=== PATIENT | female | born 1945 | race Caucasian/White ===

== ENCOUNTER 2019-06-23 00:01 | Inpatient (IN) | payer MEDICARE ==
[~2019-06-23] VITALS: Ht 165.1 cm; Wt 100.2 kg
[2019-06-23] MEDS ORDERED: BENTYL10 MG PO (00:11)
[2019-06-23] MEDS ORDERED: TRAZODONE HCL150 MG PO (00:12)
[2019-06-23] MEDS ORDERED: GABAPENTIN300 MG PO (00:13)
[2019-06-23] MEDS ORDERED: TOPROL XL25 MG PO (00:15)
[2019-06-23] MEDS ORDERED: CALAN SR240 MG PO (00:16)
[2019-06-23] MEDS ORDERED: ZOCOR20 MG PO (00:16)
[2019-06-23] MEDS ORDERED: PRINIVIL20 MG PO (00:17)
[2019-06-23] MEDS ORDERED: ZOLOFT100 MG PO (00:17)
[2019-06-23] MEDS ORDERED: SYMBICORT 16010.2 GM INH (00:18)
[2019-06-23] MEDS ORDERED: LOZOL1.25 MG PO (00:18)
[2019-06-23 00:30] LABS: BASOPHILS 0.1 % (0-2); EOSINOPHILS 0 % (0-7); HEMOGLOBIN 13.6 g/dL (12-16); IMMATURE GRANULOCYTES 0.3 % (0-5); LYMPHOCYTES 1.9 % (15-50); MCH 31.6 pg (26.0-34.0); MCV 92.8 fL (80.0-100.0); MEAN PLATELET VOLUME 9.3 fL (7.4-10.4); MONOCYTES 3.2 % (2-11); NEUTROPHILS 94.5 % (40-80); PLATELET COUNT 201 10x3/uL (130-400); RBC 4.31 10x6/uL (4.00-5.40); RDW 13.1 % (11.5-14.5); WBC 15.2 10x3/uL (4.8-10.8)
--- NOTE | 2019-06-23 00:32 | NUR ---
PT GONE TO CT VIA WHEELCHAIR.
[2019-06-23 00:42] LABS: CALC OSMOLALITY 280 mosm/kg (275-300); CALCIUM 8.2 mg/dL (8.5-10.1); CARBON DIOXIDE 27.3 mmol/L (21.0-32.0); CHLORIDE - SERUM 100 mmol/L (98-107); CREATININE - SERUM 2.3 mg/dL (0.6-1.3); GLUCOSE 124 mg/dL (74-106); POTASSIUM - SERUM 3.3 mmol/L (3.5-5.1); SODIUM 137 mmol/L (136-145); UREA NITROGEN 30 mg/dL (7-18); eGFR NON AFRICAN AMERICAN 22 mL/min (90-120)
[2019-06-23 00:50] LABS: ALBUMIN 3.3 g/dL (3.4-5.0); ALKALINE PHOSPHATASE 67 U/L (30-120); ALT (SGPT) 22 U/L (10-68); AMYLASE - SERUM 37 U/L (25-115); BILIRUBIN - TOTAL 0.92 mg/dL (0.2-1.3); LIPASE 64 U/L (73-393); PROTEIN - SERUM 6.6 g/dL (6.4-8.2)
--- NOTE | 2019-06-23 00:52 | NUR ---
PT BACK FROM CT
[2019-06-23 00:53] LABS: TROPONIN-I < 0.017 ng/mL (0.000-0.060)
--- NOTE | 2019-06-23 01:00 | NUR ---
URINE SENT TO LAB AT THIS TIME.
[2019-06-23 01:15] LABS: BILIRUBIN NEGATIVE (NEGATIVE); GLUCOSE NEGATIVE (NEGATIVE); KETONE NEGATIVE (NEGATIVE); NITRITE NEGATIVE (NEGATIVE); UROBILINOGEN NORMAL (NORMAL)
[2019-06-23 01:16] LABS: WHITE CELLS - URINE 0-5 /hpf (NEGATIVE)
[2019-06-23 01:17] LABS: BACTERIA FEW /hpf (NEGATIVE); EPITHELIAL CELLS 0-5 /hpf (0-5); HYALINE CAST 0-5 /lpf (NONE SEEN); RED CELLS - URINE 0-5 /hpf (0-5)
[2019-06-23 01:26] LABS: CKMB 2.8 U/L (0.0-3.6); CREATINE KINASE 308 UL (21-215)
[2019-06-23 02:00] VITALS: BP 136/64
[2019-06-23 06:35] VITALS: BP 112/56; BMI 30.8
[2019-06-23 09:57] VITALS: BP 104/60
[2019-06-23 10:20] VITALS: BMI 30.7
[2019-06-23 14:41] VITALS: BP 116/53
[2019-06-23 17:46] VITALS: BP 103/61
[2019-06-23 20:00] VITALS: BP 106/52
--- NOTE | 2019-06-23 20:00 | NUR ---
PT SITTING UP IN BED WITHOUT DISTRESS, ORIENTED TO SELF AND PLACE. PT SLIGHTLY CONFUSED TO TIME AND SITUATION BUT EASILY REORIENTED. PT COMPLAINS OF UPSET STOMACH, GAVE ZOFRAN ORDERED. IV RIGHT HAND INFUSING NS @ 100. IV LEFT HAND SL. HARD OF HEARING. TELE IN PLACE. PROVIDED ICE WATER. DENIES OTHER NEEDS AT THIS TIME. CL IN REACH, WILL CTM
[2019-06-24 04:00] VITALS: BP 133/55
[2019-06-24 04:43] LABS: BASOPHILS 0 % (0-2); EOSINOPHILS 0 % (0-7); HEMATOCRIT 34.3 % (36.0-48.0); HEMOGLOBIN 11.3 g/dL (12-16); IMMATURE GRANULOCYTES 0.3 % (0-5); LYMPHOCYTES 2.9 % (15-50); MCH 30.9 pg (26.0-34.0); MCHC 32.9 g/dL (31.0-37.0); MCV 93.7 fL (80.0-100.0); MEAN PLATELET VOLUME 10.1 fL (7.4-10.4); MONOCYTES 4.6 % (2-11); NEUTROPHILS 92.2 % (40-80); PLATELET COUNT 204 10x3/uL (130-400); RBC 3.66 10x6/uL (4.00-5.40); RDW 13.7 % (11.5-14.5); WBC 15.7 10x3/uL (4.8-10.8)
[2019-06-24 04:57] LABS: ANION GAP 15.6 mmol/L (8-16); CALCIUM 7.2 mg/dL (8.5-10.1); CARBON DIOXIDE 21.7 mmol/L (21.0-32.0); CREATININE - SERUM 2.2 mg/dL (0.6-1.3); MAGNESIUM - SERUM 1.6 mg/dL (1.8-2.4); PHOSPHOROUS 3.8 mg/dL (2.5-4.9); POTASSIUM - SERUM 3.3 mmol/L (3.5-5.1)
--- NOTE | 2019-06-24 07:17 | NUR ---
PT LYING IN BED STILL CONFUSERD BUT EASY TO ORIENT, PT IS DRINKING MORE WATER TODAY AND LAST NIGHT, NO S/SX OF DISTRESS, PT K+ IS STILL LOW AT 3.3 AND MAG WAS A LITTLE LOW. PT WAS ADMINISTERED EP THIS MORNING, WILL CONTINUE WITH PLAN OF CARE
--- NOTE | 2019-06-24 08:03 | NUR ---
PT DAUGHTER CALLED AND WOULD LIKE FOR DR OR METAL FENCE ERECTOR TO CALL HER IN REGARDS TO PT STATUS. PT DAUGHTER IS A NURSE AND VERY WORRIED. ADVISED WILL HAVE METAL FENCE ERECTOR CALL SOON I SEE HER. PT DAUGHTER NAME IS GABBY AND NUMBER IS [phone]
[2019-06-24 09:13] VITALS: BP 130/48
--- NOTE | 2019-06-24 10:07 | NUR ---
PT IS ON 2L AND O2 SATURATION AT 92% PT STATES SHE DOES NOT USE O2 AT HOME AND DAUGHTER CONFIRMED. GAVE PT I/S TO USE WELL. CONTINUE WITH PLAN OF CARE
--- NOTE | 2019-06-24 10:35 | NUR ---
PT IS SOB, WITH WHEEZING HEARD STANDING AT BEDSIDE, INSTRUCTED PT ON USE OF I/S. COTNINUE WITH PLAN OF CARE
[2019-06-24 12:36] VITALS: BP 103/54
--- NOTE | 2019-06-24 12:59 | NUR ---
PT DAUGHTER CALLED IN REGARDS TO PT STATUS AND IF DOCTORS HAVE MADE ROUNDS, EXPLAINED THAT I WAS JUST IN ROOM WITH DOCTOR AND PT AND PT HAS CT OF CHEST ORDERED WELL WHAT XRAY SEEMED TO SHOW, PT DAUGHTER ASKED ABOUT LABWORK AND BLOOD LEVELS WENT OVER THESE WITH HER WELL, PT DAUGHTER STATED SHE STILL HAD QUESTIONS AND WOULD LIKE TO SPEAK WITH DOCTOR. GAVE PT DAUGHTER NUMBER TO YAMIL, CONTINUE WITH PLAN OF CARE
--- NOTE | 2019-06-24 13:58 | NUR ---
I have reviewed this patient and I concur with the Shift Assessment completed by the Licensed Practical Nurse today this shift.
[2019-06-24 16:55] VITALS: BP 133/49
[2019-06-24 20:00] VITALS: BP 135/65
--- NOTE | 2019-06-24 21:00 | NUR ---
CALLED TO ROOM BY NURSES AID ABOUT PT O2 83% ON 3L/NC. RT ON FLOOR AT THIS TIME, RT AT BEDSIDE, O2 97% PER HER PULSE OX. PT HAD JUST RECIEVED BREATHING TREATMENTS. PT IS DIAPHORETIC, NAIL BEDS PALE, SOB. BS 105. ASSISTED PT IN SITTING UP IN BED MORE. PAGED CHU ROSALES APN TO UPDATE ON PT STATUS. CHU AT BEDSIDE. O2 SAT DECREASED TO 80% AND PT BECOMING INCREASINGLY SOB. ORDERS FOR STAT CHEST XRAY, ABGS AND CARDIAC ENZYMES. CHU SPOKE WITH DR JACKMAN, ORDERS TO TRANSFER TO ICU. PT TAKEN TO ROOM 2300 WITH ALL BELONGINGS.
[2019-06-24 21:11] LABS: BASOPHILS 0.1 % (0-2); EOSINOPHILS 0 % (0-7); HEMATOCRIT 35.8 % (36.0-48.0); HEMOGLOBIN 11.7 g/dL (12-16); IMMATURE GRANULOCYTES 0.6 % (0-5); MCHC 32.7 g/dL (31.0-37.0); MCV 94.7 fL (80.0-100.0); MEAN PLATELET VOLUME 9.6 fL (7.4-10.4); MONOCYTES 5.3 % (2-11); PLATELET COUNT 213 10x3/uL (130-400); RBC 3.78 10x6/uL (4.00-5.40); RDW 14.2 % (11.5-14.5); WBC 16.1 10x3/uL (4.8-10.8)
--- NOTE | 2019-06-24 21:15 | NUR ---
CALLED AND SPOKE WITH PATIENTS DAUGHTER AYANNA ABOUT PT STATUS AND BEING TRANSFERED TO ICU. VERBALIZED UNDERSTANDING, STATES SHE WILL CALL BACK LATER FOR UPDATE
[2019-06-24 21:25] LABS: CREATINE KINASE 3027 UL (21-215); TROPONIN-I 0.156 ng/mL (0.000-0.060)
[2019-06-24 21:26] LABS: ANION GAP 16.7 mmol/L (8-16); CARBON DIOXIDE 19.8 mmol/L (21.0-32.0); MAGNESIUM - SERUM 1.8 mg/dL (1.8-2.4); PHOSPHOROUS 4.6 mg/dL (2.5-4.9); POTASSIUM - SERUM 3.5 mmol/L (3.5-5.1)
[2019-06-24 21:27] LABS: CALCIUM 7.4 mg/dL (8.5-10.1)
[2019-06-24 23:00] VITALS: BP 117/55
--- NOTE | 2019-06-24 23:00 | NUR ---
REC'D PT FROM FLOOR, PT ASSISTED INTO ICU BED AND PUT ON BIPAP. HORTICULTURE/FLORICULTURE TEACHER SPOKE WITH DR SANZ, ORDERS RECD. MONITORS ON AND WORKING, SEE FLOW SHEET FOR FURTHER DETIALS. WILL CONTINUE TO OBSERVE.
[2019-06-25] VITALS (25 sets, daily range): BP systolic 94–150; BP diastolic 39–89; Ht 165.1 cm; Wt 100.2 kg
[2019-06-25 02:16] LABS: CKMB 34.4 U/L (0.0-3.6); CREATINE KINASE 2875 UL (21-215); TROPONIN-I 0.264 ng/mL (0.000-0.060)
--- NOTE | 2019-06-25 03:00 | NUR ---
PT WENT INTO FIB WITH A RATE OF 130-150S, CARDIO CONSULTED AND NEW ORDERS RECD. PT ON BIPAP, MONITORS ON AND WORKING, SEE FLOW SHEET FOR FURTHER DETAILS WILL CONTINUE TO OBSERVE.
--- NOTE | 2019-06-25 05:00 | NUR ---
RATE CONTROLLED, PT REMAINS IN FIB. MONITORS ON AND WORKING, VITALS STABLE, PT DOES NOT TOLERATE BEING OFF BIPAP.
[2019-06-25 05:56] LABS: BASOPHILS 0 % (0-2); EOSINOPHILS 0 % (0-7); HEMATOCRIT 34.3 % (36.0-48.0); HEMOGLOBIN 11.4 g/dL (12-16); IMMATURE GRANULOCYTES 0.6 % (0-5); LYMPHOCYTES 2.1 % (15-50); MCH 30.9 pg (26.0-34.0); MCHC 33.2 g/dL (31.0-37.0); MEAN PLATELET VOLUME 9.6 fL (7.4-10.4); MONOCYTES 4.5 % (2-11); NEUTROPHILS 92.8 % (40-80); PLATELET COUNT 208 10x3/uL (130-400); RBC 3.69 10x6/uL (4.00-5.40); RDW 14.2 % (11.5-14.5); WBC 14.7 10x3/uL (4.8-10.8)
[2019-06-25 06:06] LABS: INR 1.47 (0.85-1.17); PROTIME 17.7 SECONDS (11.6-15.0)
[2019-06-25 06:07] LABS: APTT 34.5 SECONDS (22.8-39.4)
[2019-06-25 06:25] LABS: ALBUMIN 2.4 g/dL (3.4-5.0); ALKALINE PHOSPHATASE 65 U/L (30-120); ALT (SGPT) 39 U/L (10-68); BILIRUBIN - TOTAL 0.77 mg/dL (0.2-1.3); CALC OSMOLALITY 287 mosm/kg (275-300); CALCIUM 7.4 mg/dL (8.5-10.1); CARBON DIOXIDE 18.4 mmol/L (21.0-32.0); CHLORIDE - SERUM 101 mmol/L (98-107); CKMB 31.6 U/L (0.0-3.6); GLUCOSE 109 mg/dL (74-106); MAGNESIUM - SERUM 1.7 mg/dL (1.8-2.4); PHOSPHOROUS 3.8 mg/dL (2.5-4.9); POTASSIUM - SERUM 3.5 mmol/L (3.5-5.1); PRO BNP 3632 pg/mL (0-450); SODIUM 136 mmol/L (136-145); UREA NITROGEN 55 mg/dL (7-18); eGFR NON AFRICAN AMERICAN 26 mL/min (90-120)
[2019-06-25 06:27] LABS: CREATINE KINASE 2530 UL (21-215); TROPONIN-I 0.243 ng/mL (0.000-0.060)
--- NOTE | 2019-06-25 07:00 | NUR ---
RECEIVED BEDSIDE REPORT AND ASSUMED CARE OF PATIENT. PATEINT ON BIPAP AT FIO2 60% WITH SPO2 88-90%, INCREASED FIO2 TO 60% WITH SPO2 90-91%. RT AT ROOM AND NOTIFIED OF CHANGE. CM - A-FIB RATE OF 62, BBS - CRACKLES. IV 20 GA TO RIGHT FA WITH AMIODARONE AT 0.5 MG/HR (16.7 ML/HR) AND NS AT 10 ML/HR. ESPINOSA CATH IN PLACE WITH RUSSELL UOP. PATIENT ALERT AND ORIENTED WITH OCCASSIONAL CONFUSED STATMENTS MADE. REORIENTED. HEAD TO TOE ASSESSMENT COMLETED.
--- NOTE | 2019-06-25 09:00 | NUR ---
DEBRA KAUR APN WITH CARDIOLOGY IN ROOM UPDATED AND EXAMINES PATIENT. TO HOLD PO MEDS.
--- NOTE | 2019-06-25 09:09 | NUR ---
SPO2 88% ON 60% FIO2 BIPAP, INCREASED FIO2 TO 70%, RT AT ROOM. UNABLE TO TOLERATE COMING OFF BIPAP FOR PO MEDS, DESATS TO 78% QUICKLY ON 10 LPM VIA HIGH FLOW NC.
--- NOTE | 2019-06-25 09:15 | NUR ---
DR. JACKMAN ORDERS AIRBORN ISOLATION FOR PATIENT AND COVID 19 TEST ALONG WITH FLU A AND B.
--- NOTE | 2019-06-25 09:50 | NUR ---
PATIENT MOVED TO AIRBORN ISOLATION ROOM 2316 PER ORDER. REMAINS ON BIPAP AT 70%.
--- NOTE | 2019-06-25 10:33 | NUR ---
DR. SANZ AT ROOM UPDATED AND EXAMINES PATIENT. VSS. INCREASED FIO2 TO 80% AND BIPAP TO 15/6.
[2019-06-25 10:49] LABS: C-REACTIVE PROTEIN 43.3 mg/dL (0.0-0.9)
--- NOTE | 2019-06-25 11:00 | NUR ---
REASSESSMENT COMPLETED. VSS.
[2019-06-25 11:16] LABS: ERYTHROCYTE SEDIMENTATION RATE 24 mm/hr (0-30)
--- NOTE | 2019-06-25 12:33 | NUR ---
Nutrition Follow-up: Noted pt on bipap this AM and unable to come off for PO meds. Diet: Clear Liquid Wt: 185# (06/22) Last BM: 06/24 Labs noted: Glu 109, Ca 7.4, Mg 1.7, Alb 2.4 Meds noted: NS @ 30, MagOx, Zofran, Pepcid, KCl -Clear liquids since admit. If unable to advance diet further and/or pt unable to eat 2/2 bipap, MD may consider nutrition support. -Monitor wt. -RD following.
[2019-06-25 13:20] LABS: CKMB 25.1 U/L (0.0-3.6); PRO BNP 5576 pg/mL (0-450)
[2019-06-25 13:26] LABS: CREATINE KINASE 2212 UL (21-215)
--- NOTE | 2019-06-25 14:00 | NUR ---
DR. ROGERS AT ROOM TO INTUBATE PATIENT. PATIENT INTUBATED WITH 7.5 ETT, [address] ROGERS GAVE PATIENT 100 MCG FENTANYL AND 2 MG VERSED. VSS. TOLERATED WELL, CM - SR RATE 72.
--- NOTE | 2019-06-25 15:00 | NUR ---
REASSESSMENT COMPLETED. VSS. PATIENT TURNED AND REPOSITIONED IN BED.
--- NOTE | 2019-06-25 16:12 | NUR ---
IV 20 GA TO RIGHT AC X 1 ATTEMPT, POSITIVE BLOOD RETURN AND FLUSHES EASILY. AMIODARONE GTT INFUSING TO RIGHT AC, AND FENTANYL, NS AND ABX TO RIGHT FA IV.
--- NOTE | 2019-06-25 17:20 | NUR ---
PATIENT TURNED AND REPOSITIONED IN BED. ATTEMPTED TO PLACE OGT BUT UNABLE TO PLACE. VSS.
--- NOTE | 2019-06-25 18:15 | NUR ---
NG TUBE PLACED TO RIGHT NARE, PLACEMENT VERIFIED BY AUSCULTATION, PLACED TO LIWS. VSS. TOLERATED WELL.
--- NOTE | 2019-06-25 19:00 | NUR ---
RECIVED REPORT AT OUTSIDE DOOR OF PT ROOM. PT IS ON ISOLATION FOR POSSIBLE COVID-19. RESULTS PENDING. PT IS INUBATED/SEDATED. VITAL SIGNS ARE STABLE AT THIS TIME. OBSERVED RESTRAINTS WITH GOOD CIRCULATION AND ESPINOSA CATHETOR THAT IS BELOW THE BLADDER AND DRAINING. BED IS LOW,SIDE RAISLX2,CALL LIGHT WITHIN REACH. WILL CONITNUE TO MONITOR
--- NOTE | 2019-06-25 21:29 | NUR ---
DAUGHTER CALLED AT THIS TIME AND GAVE PASSCODE. I UPDATED HER ON PTS STATUS
--- NOTE | 2019-06-25 22:18 | NUR ---
PUT ON ALL PPE PROTECTION AND WENT INTO PT ROOM TO ADMINISTER MEDS ORDERED AT THIS TIME. PT IS INTUBATED/SEDATED. VSS. PERFORMED ORAL CARE AND REPOSITIONED FOR COMFORT. WILL PERFORM RE-ASSESSMENT AND DOCUMENT ON FLOWSHEET. BED IS LOW,SIDE RAISLX2,CALL LIGHT WITHIN REACH. BED IS LOW,SIDE RIALSX2,CALL LIGHT WIHTHIN REACH. WILL CONITNUE TO MONITOR
--- NOTE | 2019-06-25 22:51 | NUR ---
NEW MEDICINE ORDERED JUST PUT IN TO CHANGE NS TO 1/2 NS C 50mEq OF BICARB AT 75ML/HR. PUT ON ALL PPE BEFORE GOING INTO ROOM. VSS. BED IS LOW,SIDE RIALSX2,CALL LIGHT WIHTIN REACH. WILL CONITNUE TO MONITOR
[2019-06-26] VITALS (23 sets, daily range): BP systolic 102–153; BP diastolic 52–96
--- NOTE | 2019-06-26 03:00 | NUR ---
ADMINISTERING MEDS PER ORDER AND DOCUMENTED ON MAY. PROPPER PPE IS ON. PERFORMED ORAL CARE AT THIS TIME AND REPOSITIONED FOR COMFORT. VSS. TRIED TO DRAW AM LABS AT THIS TIME BUT WAS UNSUCCESSFULX2. PT TOLERATED WELL. WILL HAVE TO GET ANOTHER NURSE TO DRAW. BED IS LOW,SIDE RIALSX2,CALL LIGHT WITHIN REACH. WILL CONINTUE TO MONITOR
[2019-06-26 04:17] LABS: BASOPHILS 0 % (0-2); EOSINOPHILS 0 % (0-7); HEMATOCRIT 30.1 % (36.0-48.0); HEMOGLOBIN 10.1 g/dL (12-16); IMMATURE GRANULOCYTES 0.5 % (0-5); LYMPHOCYTES 3.9 % (15-50); MCH 30.8 pg (26.0-34.0); MCHC 33.6 g/dL (31.0-37.0); MCV 91.8 fL (80.0-100.0); MEAN PLATELET VOLUME 9.6 fL (7.4-10.4); NEUTROPHILS 88.6 % (40-80); PLATELET COUNT 202 10x3/uL (130-400); RBC 3.28 10x6/uL (4.00-5.40); RDW 14.6 % (11.5-14.5)
[2019-06-26 04:21] LABS: WBC 8.5 10x3/uL (4.8-10.8)
[2019-06-26 04:29] LABS: APTT 30.5 SECONDS (22.8-39.4); INR 1.36 (0.85-1.17); PROTIME 16.7 SECONDS (11.6-15.0)
[2019-06-26 04:51] LABS: ALKALINE PHOSPHATASE 51 U/L (30-120); ALT (SGPT) 35 U/L (10-68); BILIRUBIN - TOTAL 0.51 mg/dL (0.2-1.3); CALCIUM 7.5 mg/dL (8.5-10.1); CARBON DIOXIDE 21.1 mmol/L (21.0-32.0); CHLORIDE - SERUM 105 mmol/L (98-107); CREATININE - SERUM 2.1 mg/dL (0.6-1.3); GLUCOSE 121 mg/dL (74-106); LDH 292 U/L (81-234); PHOSPHOROUS 4.5 mg/dL (2.5-4.9); POTASSIUM - SERUM 3.2 mmol/L (3.5-5.1); PROTEIN - SERUM 5.4 g/dL (6.4-8.2); SODIUM 139 mmol/L (136-145); eGFR NON AFRICAN AMERICAN 24 mL/min (90-120)
[2019-06-26 04:52] LABS: CALC OSMOLALITY 299 mosm/kg (275-300); CKMB 16.6 U/L (0.0-3.6); CREATINE KINASE 1224 UL (21-215); MAGNESIUM - SERUM 2.2 mg/dL (1.8-2.4); UREA NITROGEN 70 mg/dL (7-18)
--- NOTE | 2019-06-26 05:08 | NUR ---
PUT ON APPROPRIATE PPE AND WENT INTO PT ROOM TO ADMINSTER POTASSIUM THROUGH NGT. WHEN TRYING TO PUSH IN, I HAD ALOT OF RESISTANCE. I TRIED TO READJUST TUBING AND STILL WAS NOT SUCCESSFUL. I PULLED NGT AT THIS TIME AND THE TIP WAS COMPLETLY BLOCKED BY THICK BROWNISH RED SUCREATIONS. PUT IN NEW NGT IN RIGHT NARE AND SECURED TO NOSE. PT IS TO GET A CHEST X-RAY AT 0600 AND WILL WAIT TO SEE PLACEMENT BEFORE HOOKING UP TO SUCTION. VSS. PT TOLERATED WELL. BED IS LOW,SIDE RIALSX2,CALL LIGHT WITHIN REACH.WILL CONTINUE TO MONITOR
--- NOTE | 2019-06-26 05:08 | NUR ---
PUT ON APPROPRIATE PPE. WENT TO ADMINSITER POTASSIUM THOUGH NGT HOWEVER HAD ALOT OF RESISTANCE AND COULD NOT PUSH IN. I PULLED NGT AND IT WAS STOPPED UP AT TIP WITH BROWNISH RED THICK SUCREATIONS. ATTEMPTED TO DROP NGT TUBE IN RIGHT NARE AND COULD NOT VARRIFY PLACEMENT. ATTEMPTED IN LEFT NARE AND AGAIN COULD NOT VARRIFY PLACEMENT. PT TOLERATED WELL. VSS. BED IS LOW,SIDE RIALSX2,CALL LIGHT WITHIN REACH.WILL CONTINUE TO MONITOR
--- NOTE | 2019-06-26 05:46 | NUR ---
DAUGHTER CALLED AND PROVIDED PASS CODE TO GET UPDATE
--- NOTE | 2019-06-26 07:00 | NUR ---
BEDSIDE REPORT RECEIVED. SHIFT ASSESSMENT COMPLETED PER FLOWSHEET, SEE FLOWSHEET FOR INFORMATION. VSS. PT RESTING IN BED WITH EYES CLOSED. WILL CONT TO MONITOR.
--- NOTE | 2019-06-26 09:00 | NUR ---
NG TUBE INSERTED USING LEFT NARE. ASCULTATED AIR IN STOMACH. WILL CONT TO MONITOR.
--- NOTE | 2019-06-26 11:00 | NUR ---
REASSESSMENT COMPLETED PER FLOWSHEET SEE FLOWSHEET FOR INFORMATION. AT BEDSIDE FOR CVL PLACEMENT. WILL CONT TO MONITOR.
--- NOTE | 2019-06-26 13:00 | NUR ---
AT BEDSIDE, WILL CONT TO MONITOR.
--- NOTE | 2019-06-26 15:00 | NUR ---
REASSESSMENT COMPLETED PER FLOWSHEET, SEE FLOWSHEET FOR INFORMATION. PT IN BED RESTING WITH EYES CLOSED. WILL CONT TO MONITOR.
--- NOTE | 2019-06-26 17:00 | NUR ---
PT RESTING IN BED WITH EYES CLOSED. VSS. WILL CONT TO MONITOR.
--- NOTE | 2019-06-26 20:25 | NUR ---
OBSERVED AIRBORN ISOLATION AND GOWNED APPROPRIATE PPE AT THIS TIME. PT IS INTUBATED/SEDATED OPENS EYES WHEN CALLED OUT NAME. WHEN EXPLAINING WHO I AM AND WHAT IM DOING PT SHAKES HEAD UP AND DOWN. SHE IS COOROPERATIVE. NEW RIGHT SUB-CLAVIN CDI C NO S/S OF INFILTRATION OR BLEEDING. RESTRAINTS OBSERVED WITH GOOD CAP REFILL AND CIRUCULATION. ESPINOSA OBSERVED BELOW BLADDER AND DRIANING. SCDS ARE ON. REPOSITION TO RIGHT SIDE WITH POSITIONNG WEDGES AND PUT PILLOW UNDER LEGS AND KNEE TO BRIDGE FEET OFF BED. NG TUB INTACT TO LEFT NARE AND WAS HEARD BY AUSCULTAION. WILL PERFORM FULL ASSESSMENT AND DOC IN FLOW SHEET. VSS. BED IS LOW,SIDE RIASLX2,CALL LIGHT WITHIN REACH. WILL CONTINUE TO MONITOR
--- NOTE | 2019-06-26 21:13 | NUR ---
PT IS RESTING WITH EYES CLOSED, INTUBATED/SEDATED. VSS. WENT IN ROOM TO ADMINSITER MED PER ORDER. APPROPRIATE PPE WAS WORN. PERFORMED ORAL CARE AT THIS TIME AND PT TOLERATED WELL. BED IS LOW,SIDE RIALSX2,CALL LIGHT WITHIN [facility]. WILL CONTINUE TO MONITOR
--- NOTE | 2019-06-26 21:45 | NUR ---
DAUGHTER MEI CALLED AND PROVIDED CORRECT PASSCODE. UPDATE WAS GIVEN. SHE VOICED"THANK YOU SO MUCH FOR YOUR UPDATE AND YOUR TIME".
--- NOTE | 2019-06-26 23:15 | NUR ---
PT IS RESTING IN BED WITH EYES CLOSED. VSS. BED IS LOW,SIDE RAILSX2,[facility]. WILL CONTINUE TO MONITOR
[2019-06-27] VITALS (24 sets, daily range): BP systolic 107–176; BP diastolic 52–77
--- NOTE | 2019-06-27 01:09 | NUR ---
PUT ON ALL PPE AND PERFORMED RE-ASSESSMENT AT THIS TIME AND WILL DOC IN FLOWSHEET. POSITIONED PT TO RIGHT SIDE WITH POSITIONNIG BLOCKS AND PUT PILLOW BETWEEN LEGS FOR COMFORT. PT TOELRATED WELL. VSS. NOTED THAT THERE IS THICK WHITISH BROWN SECREATIONS IN NGT. TRIED TO PULL BACK AND IT IS VERY THICK AND WOULD NOT SUCTION OUT. FLUSHED WITH 30ML OF WARM WATER AND TRIED TO SUCTION OUT MANNUALY WITHOUT SUCCESS DUE TO BEING SO THICK. WILL HOOK BACK TO INTER-MITTEN SUCTION TO SEE IF IT WILL DRAIN OUT. PT ABD IS STILL SLIGHTLY FIRM WITH HYPOACTIVE BOWEL SOUNDS. NO BM YET. PERFORMED ORAL CARE AT THIS TIME. RESTRAINTS OBSERVED. BED IS LOW,SIDE RIALSX2,CALL LIGHT WITHIN REACH. WILL CONINTUE TO MONITOR
--- NOTE | 2019-06-27 03:05 | NUR ---
PT IS RESTING IN BED WITH EYES CLOSED. INTUBATED/SEDATED. VSS. BED IS LOW,SIDE RAILSX2,CALL LIGHT WITHIN REACH.WILL CONTINUE TO MONITOR
--- NOTE | 2019-06-27 03:37 | NUR ---
APPLIED APPRORIATE PPE BEFORE ENTERING ROOM. PT IS RESTING WITH EYES CLOSED. PROVIDED ORAL CARE AND ESPINOSA CATHETOR CARE AT THIS TIME. PROVIDED FULL BED BATH C HCG CLEANSER AND CHANGED GOWN AND LINENS. REPOSITIONED FOR COMFORT WITH POSITIONING BLOCKS AND PUT PILLOW UNDER LOWERLEGS TO BRIDGE HEELS OFF BED. WASHED HAIR WITH HAIR CAP. ONCE AGAIN FLUSEHD 30 ML OF WARM WATER IN NG TUBE TO TRY TO BREAKUP THICK SECREATIONS IN TUBE. STILL WAS NOT ABLE TO PULL SECREATIONS OUT. CONTINUED TO HOOK TO LOW-INTERMITTEN SUCTION. PT TOLERATED WELL. VSS. BED IS LOW,SIDE RAISLX2,CALL LGT WTIN REACH. WILL CONITNUE TO MONITOR
[2019-06-27 04:32] LABS: BASOPHILS 0.1 % (0-2); EOSINOPHILS 0 % (0-7); IMMATURE GRANULOCYTES 1.7 % (0-5); LYMPHOCYTES 3.5 % (15-50); MCH 30.6 pg (26.0-34.0); MCHC 34.1 g/dL (31.0-37.0); MEAN PLATELET VOLUME 9.6 fL (7.4-10.4); MONOCYTES 5.3 % (2-11); NEUTROPHILS 89.4 % (40-80); RDW 14.6 % (11.5-14.5); WBC 7.2 10x3/uL (4.8-10.8)
[2019-06-27 04:35] LABS: HEMATOCRIT 46.6 % (36.0-48.0); HEMOGLOBIN 15.9 g/dL (12-16); MCV 89.8 fL (80.0-100.0); PLATELET COUNT 134 10x3/uL (130-400); RBC 5.19 10x6/uL (4.00-5.40)
[2019-06-27 04:47] LABS: ANION GAP 15.6 mmol/L (8-16); BILIRUBIN - TOTAL 0.5 mg/dL (0.2-1.3); CALCIUM 7.8 mg/dL (8.5-10.1); CARBON DIOXIDE 21.7 mmol/L (21.0-32.0); CREATININE - SERUM 1.6 mg/dL (0.6-1.3); MAGNESIUM - SERUM 2.3 mg/dL (1.8-2.4); PHOSPHOROUS 3.1 mg/dL (2.5-4.9); POTASSIUM - SERUM 3.3 mmol/L (3.5-5.1); PROTEIN - SERUM 5.6 g/dL (6.4-8.2); VANCOMYCIN - RANDOM 9.5 ug/mL (10.0-20.0)
--- NOTE | 2019-06-27 05:17 | NUR ---
APPLIED ALL PROPPER PPE AT THIS TIME. ADMINISTERING POTASSIUM CHLORIDE PER PROTOCOL, DOCUMENTED ON MAY. PT IS RESTING WITH EYES CLOSED. REPOSITIONED FOR COMFORT. VSS. BED IS LOW,SIDE RAILSX2,CALL LIGHT WITHIN REACH. WILL CONTINUE TO MONITOR
--- NOTE | 2019-06-27 06:00 | NUR ---
XRAY IS HERE AT THIS TIME. PT IS RESTING WITH EYES CLOSED. VSS. BED IS LOW,SIDE RIALSX2,CALL LIGHT WITHIN REACH.WILL CONITNUE TO MONITOR
--- NOTE | 2019-06-27 06:16 | NUR ---
DAUGHTER CALLED AT THIS TIME AND PROVIDED CORRECT PASS CODE. PROVIDED WITH UPDATE
--- NOTE | 2019-06-27 07:00 | NUR ---
BEDSIDE REPORT RECEIVED. SHIFT ASSESSMENT COMPLETED PER FLOWSHEET, SEE FLOWSHEET FOR INFORMATION. PT EASILY AWAKENS, ANSWERS YES OR NO QUESTIONS, FOLLOWS COMMANDS, THEN DRIFTS BACK TO SLEEP. NO ACUTE NEEDS OR DISTRESS NOTED AT THIS TIME. VSS. WILL CONT TO MONITOR.
--- NOTE | 2019-06-27 09:00 | NUR ---
PT REPOSITIONED PER COMFORT. 0900 MEDICATIONS GIVEN. VSS. WILL CONT TO MONITOR.
--- NOTE | 2019-06-27 11:00 | NUR ---
REASSESSMENT COMPLETED PER FLOWSHEET, SEE FLOWSHEET FOR INFORMATION. VSS. WILL CONT TO MONITOR.
--- NOTE | 2019-06-27 13:00 | NUR ---
REPOSITIONED PER COMFORT WITH ANTONI RT. WILL CONT TO MONITOR.
--- NOTE | 2019-06-27 15:00 | NUR ---
REASSESSMENT COMPLETED PER FLOWSHEET, SEE FLOWSHEET FOR INFORMATION. ANTONI RT DECREASED FIO2 TO 50% FROM 80%, O2 94%. WILL CONT TO MONITOR.
--- NOTE | 2019-06-27 17:00 | NUR ---
SPOKE WITH REGARDING ORDERS. NEW ORDERS RECEIVED. STARTING TUBE FEED OF NEPRO AT 10ML/HR. VSS. WILL CONT TO MONITOR.
--- NOTE | 2019-06-27 19:00 | NUR ---
REPORT RECEIEVED. PT SEDATED ON VENT, NO ACUTE DISTRESS NOTED. ASSESSMENT COMPLETE, SEE FLOWSHEET. RT SUBCLAVIAN CVL IN PLACE, SEE IV FLOWSHEET. WILL CONTINUE TO MONITOR.
--- NOTE | 2019-06-27 21:00 | NUR ---
PT REPOSITIONED FOR COMFORT, WILL CONTINUE TO MONITOR.
--- NOTE | 2019-06-27 23:00 | NUR ---
REASSESSMENT COMPLETED, SEE FLOWSHEET.
[2019-06-28] VITALS (24 sets, daily range): BP systolic 146–168; BP diastolic 67–81
--- NOTE | 2019-06-28 01:00 | NUR ---
PT SEDATED ON VENT, NO ACUTE DISTRESS NOTED.
--- NOTE | 2019-06-28 03:00 | NUR ---
PT REPOSITIONED FOR COMFORT, REASSESSMENT COMPLETED.
--- NOTE | 2019-06-28 05:00 | NUR ---
PT SEDATED ON VENT, WILL CONTINUE TO MONITOR.
[2019-06-28 06:11] LABS: ALBUMIN 1.9 g/dL (3.4-5.0); ANION GAP 13.6 mmol/L (8-16); BILIRUBIN - TOTAL 0.39 mg/dL (0.2-1.3); CALCIUM 7.9 mg/dL (8.5-10.1); CARBON DIOXIDE 23.5 mmol/L (21.0-32.0); CREATININE - SERUM 1.3 mg/dL (0.6-1.3); MAGNESIUM - SERUM 2.6 mg/dL (1.8-2.4); PHOSPHOROUS 3.4 mg/dL (2.5-4.9); POTASSIUM - SERUM 4.1 mmol/L (3.5-5.1); PROTEIN - SERUM 5.7 g/dL (6.4-8.2); VANCOMYCIN - TROUGH 15.8 ug/mL (10.0-20.0)
[2019-06-28 06:13] LABS: BASOPHILS 0.1 % (0-2); EOSINOPHILS 0 % (0-7); IMMATURE GRANULOCYTES 6.5 % (0-5); LYMPHOCYTES 3.7 % (15-50); MCH 30.8 pg (26.0-34.0); MCHC 33.7 g/dL (31.0-37.0); MCV 91.5 fL (80.0-100.0); MEAN PLATELET VOLUME 9.5 fL (7.4-10.4); MONOCYTES 4.9 % (2-11); NEUTROPHILS 84.8 % (40-80); RDW 15.2 % (11.5-14.5)
[2019-06-28 06:29] LABS: HEMATOCRIT 31.2 % (36.0-48.0); HEMOGLOBIN 10.5 g/dL (12-16); PLATELET COUNT 207 10x3/uL (130-400); RBC 3.41 10x6/uL (4.00-5.40); WBC 13.4 10x3/uL (4.8-10.8)
--- NOTE | 2019-06-28 09:57 | EC ---
PATIENT:BAILEY JEAN BAPTISTE DATE OF SERVICE: 06/23/19 SEX: F MEDICAL RECORD: [id number] DATE OF : 41 LOCATION:[facility] D231 AGE OF PATIENT: 74 ADMISSION DATE: 06/23/19 REFERRING PHYSICIAN: INTERPRETING PHYSICIAN: RONEY MINA MD ECHOCARDIOGRAM REPORT ECHO CHARGES 4 ECHO COMPLETE Date: 06/25/19 CLINICAL DIAGNOSIS: DYSPNEA, TACHYCARDIA, RENAL FX ECHOCARDIOGRAPHIC MEASUREMENTS (adult normal given) AC root (d.<3.7cm) 2.5 cm LV Septum d (<1.2 cm> 1.2 cm Valve Excursion 1.7 cm LV Septum (systole) 1.8 cm Left Atria (s.<4.0cm> 3.6 cm LVPW d(<1.2cm) 0.9 cm RV (d.<2.3cm) 2.3 cm LVPW (sytole) 1.1 cm LV diastole(<5.6CM) 4.7 cm MV E-F(>70mm/sec) cm LV systole 3.3 cm LVOT Diameter 1.8 cm MV exc.(>10mm) cm Est.ejection fraction (50-75%) % DOPPLER: LVIT cm/sec A 34 cm/sec E 77 cm/sec LA cm/sec RVSP 30.3 mmHg LVOT 101 cm/sec AOP1/2T m/s Asc. Ao 154 cm/sec RVOT 72 cm/sec RA cm/sec PA 95 cm/sec AV Gradient Peak 9.5 mmHg AV Mean 5.8 mmHg AV Area 1.6 cm MV Gradient Peak 3.2 mmHg MV Mean 1.1 mmHg MV Area cm COMMENTS: Material Worker: Светлана DOWNING Faculty Head: 3 Dr. Lopez TAPE# PACS Pericardial Effusion N DATE OF SERVICE: Adequate 2D, color flow imaging, spectral Doppler, and M-Mode Borderline LVH. LV internal dimension is normal. Wall motion is normal. EF is greater than or equal to 55%. Aortic valve is tricuspid. No evidence of stenosis by Doppler interrogation. Left atrium is normal at 3.6 cm. Mitral valve shows no prolapse. Trace MR. Right-sided chambers are grossly normal. Trace TR. ECHOCARDIOGRAM REPORT [id number] BAILEY JEAN BAPTISTE TRANSINT:[id number] Voice Confirmation ID: [id number] DOCUMENT ID: [id number] RONEY MINA MD at 0957 CC: [id number] DICTATION DATE: 06/25/19 1013 CROP OR GRAIN FARMWORKER: 06/25/19 1200 ADM IN [place] [id number] [place] [id number]
[2019-06-28 10:08] LABS: ANA REFLEX - DIRECT Negative (Negative)
--- NOTE | 2019-06-28 12:07 | NUR ---
Nutrition follow-up: Pt intubated, sedated Nepro @ 20 ml/hr; to increase to goal rate of 40 ml/hr labs reviewed Wt: 208# +BM RDN following.
--- NOTE | 2019-06-28 19:15 | NUR ---
REPORT RECEIEVED. PT SEDATED ON VENT. ASSESSMENT COMPLETE, SEE FLOWSHEET. RT SUBCLAVIAN CVL INFUSING, SEE IV FLOWSHEET. SOFT WRIST RESTRAINTS IN PLACE, WILL CONTINUE TO MONITOR.
--- NOTE | 2019-06-28 21:00 | NUR ---
PT SEDATED ON VENT, NO ACUTE DISTRESS NOTED.
--- NOTE | 2019-06-28 23:00 | NUR ---
PT SEDATED ON VENT, REASSESSMENT COMPLETED.
[2019-06-29] VITALS (23 sets, daily range): BP systolic 115–181; BP diastolic 66–119
--- NOTE | 2019-06-29 01:00 | NUR ---
PT SEDATED ON VENT, REPOSITIONED FOR COMFORT.
--- NOTE | 2019-06-29 03:43 | NUR ---
PT WENT INTO UNCONTROLLED AFIB, DR ANSHUL REYES, UPDATED ON STATUS NEW ORDERS RECEIVED.
--- NOTE | 2019-06-29 05:00 | NUR ---
CHG BATH GIVEN, PT SEDATED ON VENT. WILL CONTINUE TO MONITOR.
[2019-06-29 06:11] LABS: HEMATOCRIT 32.2 % (36.0-48.0); HEMOGLOBIN 10.7 g/dL (12-16); MCH 30.5 pg (26.0-34.0); MCHC 33.2 g/dL (31.0-37.0); MCV 91.7 fL (80.0-100.0); MEAN PLATELET VOLUME 9.5 fL (7.4-10.4); PLATELET COUNT 168 10x3/uL (130-400); RBC 3.51 10x6/uL (4.00-5.40); RDW 15.5 % (11.5-14.5)
[2019-06-29 06:31] LABS: ALBUMIN 1.8 g/dL (3.4-5.0); ANION GAP 10.5 mmol/L (8-16); BILIRUBIN - TOTAL 0.3 mg/dL (0.2-1.3); CALCIUM 8.2 mg/dL (8.5-10.1); CREATININE - SERUM 1.4 mg/dL (0.6-1.3); MAGNESIUM - SERUM 2.3 mg/dL (1.8-2.4); POTASSIUM - SERUM 3.5 mmol/L (3.5-5.1); PROTEIN - SERUM 5.3 g/dL (6.4-8.2); VANCOMYCIN - TROUGH 21.5 ug/mL (10.0-20.0)
--- NOTE | 2019-06-29 07:00 | NUR ---
ASSESSMENT COMPLETE PER FLOWSHEET. PT INTUBATED. SEE FLOWSHEET.
--- NOTE | 2019-06-29 09:40 | NUR ---
DEBRA KAUR APN HERE SEEING PT. DIG 0.5MG ORDER NOW THEN 0.25 MG X2 DOSES. DIG GIVEN IVP. UCAF\FLUTTER HR 153
[2019-06-29 12:41] LABS: ANISOCYTOSIS OCC; LYMPHOCYTES 5 % (15-50); MONOCYTES 8 % (2-11); NEUTROPHILS 78 % (40-80); PLATELET ESTIMATE NORMAL
--- NOTE | 2019-06-29 13:40 | NUR ---
DEBRA KAUR BEEPED. RETURN CALL ADDING CARDIZEM GTT TO REGIMEN. INSTRUCT PT IN AFIB/FLUTTER HR 160.
--- NOTE | 2019-06-29 16:00 | NUR ---
DEBRA KAUR APN CALLED INSTRUCT PT GOING IN AND OUT OF AFIB\FLUTTER. CONTINUE CARDIZEM AND CORDARONE.
--- NOTE | 2019-06-29 17:00 | NUR ---
DAUGHTER CALLED AND UPDATED. INSTRUCT PT IS CRITICAL BUT STABLE. SHES BEEN IN AFIB/FLUTTER HR OF 160. ON 2 GTTS TO HELP.
--- NOTE | 2019-06-29 18:04 | MORECARE ---
CASE MANAGEMENT DISCHARGE SUMMARY PATIENT: BAILEY JEAN BAPTISTE UNIT: [id number] ADM DATE: 06/23/19 AGE: 74 : 43 SEX: F ROOM/BED: D.2304 AUTHOR: RACHID MCCALL PHYSICIAN: REFERRING PHYSICIAN: LUCILA JACKMAN DO DATE OF SERVICE: 06/29/19 Discharge Plan Patient Name: BAILEY JEAN BAPTISTE Facility: [facility]:[place] : 1945 Planned Disposition: Home Anticipated Discharge Date: Discharge Date: Expected LOS: Initial Reviewer: [email or web address] Initial Review Date: 06/23/2019 Generated: 06/29/19 7:04 pm Patient Name: BAILEY JEAN BAPTISTE Page [phone] at 1804 All edits/amendments must be made on the electronic document DICTATION DATE: 06/29/191803 PIE FILLER: [email or web address] 06/29/191803 RPT#: [id number] DC DATE: STATUS: ADM IN [facility] [address] [place] [address] END OF REPORT
--- NOTE | 2019-06-29 18:12 | MORECARE ---
CASE MANAGEMENT DISCHARGE SUMMARY PATIENT: BAILEY JEAN BAPTISTE UNIT: [id number] ADM DATE: 06/23/19 AGE: 74 : 43 SEX: F ROOM/BED: D.2304 AUTHOR: STEFANYDOC PHYSICIAN: REFERRING PHYSICIAN: LUCILA JACKMAN DO DATE OF SERVICE: 06/29/19 Discharge Plan Patient Name: BAILEY JEAN BAPTISTE Facility: [facility]:[place] : 1945 Planned Disposition: Home Anticipated Discharge Date: Discharge Date: Expected LOS: Initial Reviewer: [email or web address] Initial Review Date: 06/23/2019 Generated: 06/29/19 7:12 pm Comments DCP- Discharge Planning Updated by [id number]: Sheryl Sandra on 06/29/19 5:[address] Patient Name: BAILEY JEAN BAPTISTE Admission Status: ER Accout number: [id number] Admission Date: 06-23-2019 : 1945 Admission Diagnosis:DIARRHEA, UNSPECIFIED Attending: LUCILA JACKMAN Current LOS: 6 Anticipated DC Date: Planned Disposition: Home Primary Insurance: MEDICARE A & B Discharge Planning Comments: CM called and spoke with patient's daughter to complete initial dc planning assessment. CM educated patient's daughter on the CM role and verbal consent given by patient to complete assessment. Patient lives at home alone where she is independent with her care. At discharge patient's daughter plans on her discharging home. CM discussed availability of home health, rehab services, and medical equipment. She has a shower chair. Patient's daughter denied any known discharge needs at this time. CM will continue to follow and will assist as needed with dc plans/needs. Structures Mechanic: Sheryl Sandra DCPIA - Discharge Planning Initial Assessment Updated by [email or web address]: Sheryl Sandra on 06/29/19 6:06 pm * Is the patient Alert and Oriented? No * How many steps to enter\exit or inside your home? * PCP NO PCP * [facility] * Preadmission Environment Home Alone * ADLs Independent * Equipment Shower Chair * List name and contact numbers for known caregivers / representatives who currently or will assist patient after discharge: AYANNA ENRIQUEZ - DAUGHTER- [phone] * Verbal permission to speak to the caregivers and representatives has been obtained from the patient. N/A * Community resources currently utilized None * Additional services required to return to the preadmission environment? No * Can the patient safely return to the preadmission environment? Yes * Has this patient been hospitalized within the prior 30 days at any hospital? No Last DP export: 06/29/19 5:04 p Patient Name: BAILEY JEAN BAPTISTE Page [phone] at 1812 All edits/amendments must be made on the electronic document DICTATION DATE: 06/29/191811 FOUR SLIDE MACHINE SETTER: NGUYỄN 06/29/191811 RPT#: [id number] DC DATE: STATUS: ADM IN [facility] [address] [place] [address] END OF REPORT
--- NOTE | 2019-06-29 18:30 | NUR ---
pt turned and suction. Cm afib\flutter hr 170. Pt reathing 26 times a minute o2 sats 90 percent. Abg obtained. Fio2 increased to 80 percent.
--- NOTE | 2019-06-29 19:00 | NUR ---
RECEIVED REPORT. RECEIVED PATIENT IN BED. SEDATED/INTUBATED, ETT INTACT/SECURE/PATENT CONNECTED TO MECHANICAL VENT WITH ALARMS SET. ASSESSMENT COMPLETED SEE FLOW SHEET FOR DETAILS. MONITORS CONNECTED TO PATIENT WITH ALARMS SET. VSS.
[2019-06-29 20:06] LABS: MYCOPLASMA PNEUMO IGG <100 U/mL (0-99)
--- NOTE | 2019-06-29 21:00 | NUR ---
SEDATED/INTUBATED. VSS
--- NOTE | 2019-06-29 23:00 | NUR ---
REASSESSMENT COMPLETED PER FLOW SHEET, SEE FOR DETAILS. VSS. ETT INTACT/SECURE/PATENT
[2019-06-30] VITALS (22 sets, daily range): BP systolic 133–198; BP diastolic 62–102
--- NOTE | 2019-06-30 03:00 | NUR ---
REASSESSMENT COMPLETED PER FLOW SHEET WITH NO ACUTE DISTRESS OBSERVED. VSS. ETT INTACT/SECURE/PATENT CONNECTED TO MECH VENT AT ORDERED SETTINGS.
--- NOTE | 2019-06-30 05:00 | NUR ---
SEDATED/INTUBATED. CHG BATH , ESPINOSA CATH CARE, ORAL CARE GIVEN. TURNED AND REPOSITIONED FOR COMFORT. WILTON WELL.
--- NOTE | 2019-06-30 07:00 | NUR ---
ASSESSMENT COMPLETE PER FLOWSHEET.
--- NOTE | 2019-06-30 09:07 | NUR ---
Nutrition follow-up: Intubated, sedated; PSV trial today Nepro Infusing @ 40 ml/hr; pt tolerating at this time Labs reviewed Wt: 205# RDN following.
[2019-06-30 09:14] LABS: HEMATOCRIT 40.1 % (36.0-48.0); HEMOGLOBIN 13.7 g/dL (12-16); MCH 31.1 pg (26.0-34.0); MCHC 34.2 g/dL (31.0-37.0); MCV 91.1 fL (80.0-100.0); MEAN PLATELET VOLUME 10.3 fL (7.4-10.4); PLATELET COUNT 205 10x3/uL (130-400); RDW 15.2 % (11.5-14.5); WBC 36.6 10x3/uL (4.8-10.8)
[2019-06-30 09:18] LABS: ANION GAP 12.9 mmol/L (8-16); CALCIUM 8.4 mg/dL (8.5-10.1); CARBON DIOXIDE 29.6 mmol/L (21.0-32.0); CREATININE - SERUM 1.3 mg/dL (0.6-1.3); POTASSIUM - SERUM 3.5 mmol/L (3.5-5.1)
[2019-06-30 09:27] LABS: LYMPHOCYTES 7 % (15-50); MONOCYTES 1 % (2-11); NEUTROPHILS 92 % (40-80); PLATELET ESTIMATE NORMAL
[2019-06-30 09:29] LABS: SCHISTOCYTES OCC
--- NOTE | 2019-06-30 12:00 | NUR ---
FAMILY UPDATED PER DR DE LA GARZA.
--- NOTE | 2019-06-30 15:00 | NUR ---
TO CT VIA BED. WITH SANDY RT AND ELLEN.
--- NOTE | 2019-06-30 17:00 | NUR ---
DR DE LA GARZA CALLED AND UPDATED ON CT. FLEETS ENEMA ORDERED AND GIVEN.
--- NOTE | 2019-06-30 19:00 | NUR ---
SHIFT ASSESSMENT COMPLETED. PT CARE ASSUMED, MONITORS ON AND WORKING, HEART RATE IN THE 120S, PT SEDATED ON VENT, VENT SETTINGS NOTED. SEE FLOW SHEET FOR FURTHER DETAILS. WILL CONTINUE TO OBSERVE.
--- NOTE | 2019-06-30 21:00 | NUR ---
PT TURNED AND REPOSITIONED FOR COMFORT, MONITORS ON AND WORKING, HEART RATE REMAINS FIB/FLUTTER RATE 1OO'S. WILL CONTINUE TO OBSERVE.
--- NOTE | 2019-06-30 23:00 | NUR ---
PT TURNED AND REPOSITIONED FOR COMFORT, MONITORS ON AND WORKING, PRN VERSED GIVEN, PT HEART RATE IMPROVING AND RESP RATE. SEE FLOW SHEET FOR FURTHER DETAILS, WILL CONTINUE TO OBSERVE.
[2019-07-01] VITALS (24 sets, daily range): BP systolic 88–167; BP diastolic 27–83
--- NOTE | 2019-07-01 01:00 | NUR ---
PT TURNED AND REPOSITIONED FOR COMFORT, MONITORS ON AND WORKING, VITALS STABLE. WILL CONTINUE TO OBSERVE.
--- NOTE | 2019-07-01 03:00 | NUR ---
PT TURNED AND REPOSITIONED FOR COMFORT, ICE PACKS ON PT FOR FEVER, PT RESP RATE, HEART RATE AND RHYTHM SEEM TO RESPOND WELL TO PRN VERSED. PT CURRENTLY IN NORMAL SINUS. PT TURNED AND REPOSITIONED FOR COMFORT, MONITORS ON AND WORKING, VITALS STABLE, SEE FLOW SHEET FOR FURTHER DETAILS. WILL CONTINUE TO OBSERVE.
--- NOTE | 2019-07-01 05:00 | NUR ---
PT TURNED AND REPOSITIONED FOR COMFORT, MONITORS ON AND WORKING, VITALS STABLE. WILL CONTINUE TO OBSERVE.
[2019-07-01 05:31] LABS: BILIRUBIN NEGATIVE (NEGATIVE); GLUCOSE NEGATIVE (NEGATIVE); KETONE NEGATIVE (NEGATIVE); NITRITE NEGATIVE (NEGATIVE); UROBILINOGEN NORMAL (NORMAL)
[2019-07-01 05:32] LABS: BACTERIA FEW /hpf (NEGATIVE); EPITHELIAL CELLS 0-5 /hpf (0-5); RED CELLS - URINE 0-5 /hpf (0-5); WHITE CELLS - URINE 0-5 /hpf (NEGATIVE)
[2019-07-01 06:30] LABS: VANCOMYCIN - TROUGH 18.8 ug/mL (10.0-20.0)
[2019-07-01 06:40] LABS: BASOPHILS 0.1 % (0-2); EOSINOPHILS 0 % (0-7); HEMATOCRIT 37.4 % (36.0-48.0); HEMOGLOBIN 12.6 g/dL (12-16); LYMPHOCYTES 4.3 % (15-50); MCH 30.3 pg (26.0-34.0); MCHC 33.7 g/dL (31.0-37.0); MCV 89.9 fL (80.0-100.0); MEAN PLATELET VOLUME 11.7 fL (7.4-10.4); MONOCYTES 4.6 % (2-11); PLATELET COUNT 127 10x3/uL (130-400); RBC 4.16 10x6/uL (4.00-5.40); RDW 14.9 % (11.5-14.5); WBC 34.6 10x3/uL (4.8-10.8)
--- NOTE | 2019-07-01 07:00 | NUR ---
REPORT RECEIVED. ASSESSMNE TOCMPLETE PER FLOW SHEET. VSS. PT RESTING COMFORTABLY WILL CONTINUE TO MONITOR
[2019-07-01 07:01] LABS: ALBUMIN 1.8 g/dL (3.4-5.0); BILIRUBIN - TOTAL 0.53 mg/dL (0.2-1.3); CALCIUM 7.7 mg/dL (8.5-10.1); CARBON DIOXIDE 28.5 mmol/L (21.0-32.0); PHOSPHOROUS 2.5 mg/dL (2.5-4.9); PROTEIN - SERUM 5.2 g/dL (6.4-8.2)
[2019-07-01 07:08] LABS: ANION GAP 12.2 mmol/L (8-16); CREATININE - SERUM 1.7 mg/dL (0.6-1.3); MAGNESIUM - SERUM 1.6 mg/dL (1.8-2.4)
[2019-07-01 07:09] LABS: POTASSIUM - SERUM 2.7 mmol/L (3.5-5.1)
--- NOTE | 2019-07-01 08:01 | OP ---
PATIENT NAME: BAILEY JEAN BAPTISTE MEDICAL RECORD: [id number] :41 LOCATION:D.ICU D.2304 ADMISSION DATE:06/23/19 SURGEON: JUVENCIO COOL MD DATE OF OPERATION: 06/26/2019 PREOPERATIVE DIAGNOSES: 1. Need for IV access. 2. Acute respiratory failure on the ventilator. 3. Metabolic encephalopathy. 4. Possible acute colitis. 5. Atrial fibrillation with rapid ventricular response. 6. Acute kidney injury. POSTOPERATIVE DIAGNOSES: 1. Need for IV access. 2. Acute respiratory failure on the ventilator. 3. Metabolic encephalopathy. 4. Possible acute colitis. 5. Atrial fibrillation with rapid ventricular response. 6. Acute kidney injury. PROCEDURE: Right subclavian vein triple-lumen central venous line placement. SURGEON: Juvencio Cool MD REPORT OF PROCEDURE: The patient's right chest was prepped and draped in sterile fashion. A total of 5 cc of 1% lidocaine was infused into the subcutaneous tissues. A needle was used to cannulate the right subclavian vein and a guidewire was advanced with ease. Over this wire, a dilator was placed followed by the triple lumen catheter. The catheter aspirated nonpulsatile dark blood and flushed easily in all 3 ports. This was sutured into place with 3-0 silk ties and dressed appropriately. COMPLICATIONS: None. CONDITION: Critical. ANESTHESIA: General endotracheal and local. BLOOD LOSS: Minimal. Procedure was done in the ICU at the bedside. TRANSINT:[id number] Voice Confirmation ID: [id number] DOCUMENT ID: [id number] JUVENCIO COOL MD at 0801 CC: [id number] DICTATION DATE: 06/26/[address] CLERK: 06/26/19 1510 ADM IN [place] [id number] [place] [address]
--- NOTE | 2019-07-01 11:00 | NUR ---
REASSESSMENT COMPLETE PER FLOW SHEET. VSS. PT RESTING COMFORTABLY WILL CONTINUE TO MONITOR
[2019-07-01 14:36] LABS: MACROPHAGES BF 3 %; NEUT - BF 80 %
[2019-07-01 14:38] LABS: MACROPHAGES BF 4 %; NEUT - BF 82 %
[2019-07-01 14:52] LABS: BILIRUBIN NEGATIVE (NEGATIVE); GLUCOSE NEGATIVE (NEGATIVE); KETONE SMALL mg/dL (NEGATIVE); NITRITE NEGATIVE (NEGATIVE); UROBILINOGEN NORMAL (NORMAL)
[2019-07-01 14:53] LABS: BACTERIA FEW /hpf (NEGATIVE); EPITHELIAL CELLS OCC /hpf (0-5); GRANULAR CAST RARE /lpf (NONE SEEN); WHITE CELLS - URINE RARE /hpf (NEGATIVE)
--- NOTE | 2019-07-01 15:00 | NUR ---
REASSESSMENT COMPLETE PER FLOW SHEET. VSS NO NEW CHANGES WILL CONTINUE TO MONITOR
--- NOTE | 2019-07-01 19:00 | NUR ---
HEAD TO TOE ASSESSMENT COMPLETED. ENTERED ROOM FOUND PATIENT HYPOTENSIVE WITH A FEVER OF 103.6. PROVIDED TYLENOL. Sinus rhythm noted on the monitor stopped Cardizem per order Sinus rhythm noted on the monitor stopped Cardizem per order. Decreased Precedex per order. Applied ice packs and reposition for comfort.
--- NOTE | 2019-07-01 20:00 | NUR ---
Reassessed temperature temperature 103.4 reapplied ice packs
--- NOTE | 2019-07-01 21:00 | NUR ---
Reassess temperature, temperature is at 101.6 reapplied ice packs. Reposition patient and provided oral care.
--- NOTE | 2019-07-01 23:00 | NUR ---
Head to toe assessment completed. Patient continues to be febrile applied ice packs and administered Tylenol per order. Patient does not move or fight ventilator. removed restraints. Reposition patient and provided oral care.
[2019-07-02] VITALS (41 sets, daily range): BP systolic 76–145; BP diastolic 36–105
--- NOTE | 2019-07-02 05:00 | NUR ---
Reposition patient for comfort provided oral care. Obtained a.m. labs
--- NOTE | 2019-07-02 05:44 | NUR ---
Assessment completed. Provided full complete bed bath. Temperature noted to be 98.3.Decrease sedation per order.
[2019-07-02 05:47] LABS: ALBUMIN 1.6 g/dL (3.4-5.0); BILIRUBIN - TOTAL 0.87 mg/dL (0.2-1.3); PROTEIN - SERUM 4.6 g/dL (6.4-8.2)
[2019-07-02 05:48] LABS: HEMOGLOBIN 11.1 g/dL (12-16); MCH 30.2 pg (26.0-34.0); MCHC 33.6 g/dL (31.0-37.0); MCV 89.9 fL (80.0-100.0); PLATELET COUNT 61 10x3/uL (130-400); RBC 3.67 10x6/uL (4.00-5.40); RDW 15.9 % (11.5-14.5); WBC 35.9 10x3/uL (4.8-10.8)
[2019-07-02 05:53] LABS: INR 1.93 (0.85-1.17); PROTIME 21.8 SECONDS (11.6-15.0)
[2019-07-02 06:11] LABS: ANION GAP 17.1 mmol/L (8-16); CREATININE - SERUM 3.3 mg/dL (0.6-1.3); POTASSIUM - SERUM 4.1 mmol/L (3.5-5.1)
[2019-07-02 06:14] LABS: CALCIUM 6.6 mg/dL (8.5-10.1)
--- NOTE | 2019-07-02 07:15 | NUR ---
REPORT RECEIVED. ASSESSMENT COMPLETE PER FLOW SHEET. PT NON RESPONSIVE TO PAIN OR VERBAL CUES AT THIS TIME. ALL SEDATION OFF. REFER FOR FINDINGS. ORAL ENDOTRACH CARE ADM. WILL CONTINUE TO MONITOR
[2019-07-02 10:50] LABS: ANISOCYTOSIS OCC; EOSINOPHILS 1 % (0-7); LYMPHOCYTES 11 % (15-50); MONOCYTES 12 % (2-11); NEUTROPHILS 71 % (40-80); PLATELET ESTIMATE DECREASED
--- NOTE | 2019-07-02 11:00 | NUR ---
REASSESSMENT COMPLETE PER FLOW SHEET. VSS. PT RESTING COMFORTABLY WILL CONTINUE TO MONITOR
[2019-07-02 12:00] LABS: APTT 83.3 SECONDS (22.8-39.4)
--- NOTE | 2019-07-02 12:13 | NUR ---
Nutrition Follow-up: Pt remains intubated. Nursing reports TF on hold 04/11 pt condition. Diet: Nepro - goal rate 40 mL/hr Wt: 195.4# (07/01); 205# (06/29); 208# (06/26) Last BM: 07/01 Labs noted: K+ 4.1, Glu 152, Ca 6.6, Alb 1.6 Meds noted: Senokot, Pepcid, Vasopressin, Levophed -Rec resume TF when medically feasible. -RD following.
[2019-07-02 12:23] LABS: HEMATOCRIT 30.5 % (36.0-48.0); HEMOGLOBIN 10.1 g/dL (12-16); MCH 30.2 pg (26.0-34.0); MCHC 33.1 g/dL (31.0-37.0); MCV 91.3 fL (80.0-100.0); PLATELET COUNT 60 10x3/uL (130-400); RBC 3.34 10x6/uL (4.00-5.40); RDW 16.4 % (11.5-14.5); WBC 41.2 10x3/uL (4.8-10.8)
[2019-07-02 12:24] LABS: PROTIME 29.3 SECONDS (11.6-15.0)
[2019-07-02 12:34] LABS: INR 2.83 (0.85-1.17)
[2019-07-02 12:40] LABS: D-DIMER-QUANTITATIVE 3.93 ug/mLFEU (0.20-0.54)
--- NOTE | 2019-07-02 13:30 | NUR ---
CARE ASSUMED ON PT.
[2019-07-02 14:08] LABS: ACID FAST SMEAR Negative (()); AFB SPECIMEN PROCESSING Concentration (())
[2019-07-02 15:49] LABS: APPEARANCE - CSF CLEAR; RBC - CSF 1 cmm (0-0)
[2019-07-02 15:53] LABS: GLUCOSE - CSF 85 MG/DL (40-75); PROTEIN - CSF 39 MG/DL (12-60)
--- NOTE | 2019-07-02 16:00 | NUR ---
DAUGHTERS AT THE BEDSIDE BOTH HAVE DECIDED FOR A DNR STATUS ON PT. MEI STATES "I CANT PUT HER THROUGH BEING CODED." INSTRUCT WILL CALL DR DE LA GARZA AND DR ANDREWS.
[2019-07-02 16:16] LABS: LYMPH - CSF 55 % (40-80); MONO - CSF 42 % (15-45); NEUT - CSF 3 % (0-6)
--- NOTE | 2019-07-02 16:30 | NUR ---
DNR ORDER OBTAINED PER DR ANDREWS.
--- NOTE | 2019-07-02 19:00 | NUR ---
RECIVED REPORT AT BEDSIDE. PT IS INTUBATED/SEDATED, UNRESPONSIVE. VSS. BOTH DAUGHTERS ARE AT BEDSIDE. WILL PERFORM FULL ASSESSMENT AND DOCUMENT. NO RESTRAINTS OBSERVED. FOELY CATHETOR BELOW BLADDER WITH VERY LITTLE URINE. REPORT TODAY PT HAD HARDLY ANY URINE OUTPUT. BED IS LOW,SIDE RAILSX2,CALL LGIHT WTHIN REACH. WILL CONTINUE TO MONITOR
--- NOTE | 2019-07-02 20:19 | NUR ---
PT IS RESTING IN BED INTUBATED/SEDATED. PT IS UNRESPONSIVE TO STIMULI. HR IS NOTED TO BE 130'S/ 140'S A FLUTTER. METOPROLOL IS ORDERE AT THIS TIME TO GIVE 5MG IV. WILL GIVE 2.5MG AT THIS TIME AND SEE IF BRINGS HR DOWN. BP IS 92/41 VIA ARTLINE. ALL OTHER VITALS STABLE. IM AT BEDSIDE, CONTINUE TO MONITOR
--- NOTE | 2019-07-02 20:53 | NUR ---
PAGED AT THIS TIME
--- NOTE | 2019-07-02 21:11 | NUR ---
PAGED AGAIN AT THIS TIME
--- NOTE | 2019-07-02 21:25 | NUR ---
TALKED TO AT THIS TIME. T.O TO GIVE 0.5MG DIGOXIN IV AT THIS TIME AND CALL HIM BACK IN AN HOUR IF NO CHANGE. T.O READ BACK CORRECT
--- NOTE | 2019-07-02 22:24 | NUR ---
CALLED AT THIS TIME TO GET UPDATE. T.O TO START DOPAMINE SET RATE AT 3MCG. T.O READ BACK CORRECT. HE ALSO VOICED IF BP GOES DOWN TO LET HIM KNOW.
--- NOTE | 2019-07-02 23:09 | NUR ---
PT IS RESTING IN BED AT THIS TIME WITH EYES CLOSED. HR IS 151 A.FLUTTER AT THIS TIME. STARTED DOPAMINE DRIP PER T.O. AT SET RATE OF 3MCG/KG/MIN. ALL OTHER VS ARE STABLE. PROVIDE ORAL CARE AT THIS TIME AND RESPOSITIONED FOR COMFORT. BED IS LOW,SIDE RAISLX2,CALL LGIHT WITHIN REACH.WILL CONITUE TO MONITOR
--- NOTE | 2019-07-02 23:45 | NUR ---
TALKED WITH . Jim.Yanique TO STOP DOPAMINE DRIP AND TO START AMIODARONE NOW. GIVE AMIODARONE 150MG BOLUS OVER 10 MINUTES AND THEN 1MG/MIN FOR 12HOURS. Duncan READ BACK CORRECT. HE VOICED "CALL ME IF HER BP GETS BELOW 80 SYSTOLIC.
[2019-07-03] VITALS (42 sets, daily range): BP systolic 39–128; BP diastolic 38–48
--- NOTE | 2019-07-03 00:02 | NUR ---
PT IS RESTING WITH EYES OPEN, NOT BLINKING INTUBATED/SEDATED. VSS EXCEPT HR IS 136 A.FLUTTER. AMIODARONE HAS BEEN STARTED. WILL CONITNUE TO MONITOR
--- NOTE | 2019-07-03 01:27 | NUR ---
PT IS RESTING IN BED INTUBATED. NO RESPONSE STILL WITH A GCS OF 3. VSS ARE STABLE. HR IS 111 A.FLUTTER AT THIS TIME WHICH IS AN IMPROVEMENT.
--- NOTE | 2019-07-03 04:00 | NUR ---
TEMP IS 102.8F AT THIS TIME. ADMINISTERING TYLENOL 500MG AT THIS TIME THROUGH NGT. ALL OTHER VITALS ARE STABLE.
--- NOTE | 2019-07-03 04:07 | NUR ---
PT IS RESTING IN BED WITH EYES CLOSED. VSS. PROVIDED ORAL CARE AND PT CLOSED MOUTH WHEN TRYIGN TO CLEAN. I TRIED STIMULATING DEEP PAIN RESPONSE AND PT OPENED EYES SLIGHTLY. NO OTHER RESPONSE WAS GIVEN. PT STILL WILL NOT MOVE EXTREMITIES. REPOSITIONED FOR COMFORT. BED ISLOW,SIDE RAILSX2,CALL LIGTH WITHIN REACH. [facility]
--- NOTE | 2019-07-03 04:48 | NUR ---
temp is 100.7F AT THIS TIME. VSS. HR IS 103 A.FLUTTER. WILL CONTINUE TO MONITOR
[2019-07-03 05:00] LABS: HEMATOCRIT 24.4 % (36.0-48.0); MCHC 32.8 g/dL (31.0-37.0); MCV 91.4 fL (80.0-100.0); PLATELET COUNT 29 10x3/uL (130-400); RBC 2.67 10x6/uL (4.00-5.40); RDW 17.1 % (11.5-14.5); WBC 26.4 10x3/uL (4.8-10.8)
[2019-07-03 05:01] LABS: BASOPHILS 0.2 % (0-2); EOSINOPHILS 0 % (0-7); IMMATURE GRANULOCYTES 4.8 % (0-5); LYMPHOCYTES 7.4 % (15-50); MONOCYTES 2.6 % (2-11)
--- NOTE | 2019-07-03 05:07 | NUR ---
PAGED FAYE GUZMAN APN AT THIS TIME
--- NOTE | 2019-07-03 05:13 | NUR ---
TALKED WITH AND INFORMED HIM OF CRITICAL LOW PLT COUNT OF 29. NO NEW ORDERS GIVEN AT THIS TIME
--- NOTE | 2019-07-03 05:26 | NUR ---
PERFORMED PARTIAL BATH AND ESPINOSA CATHETOR CARE AT THIS TIME. PT TOLERATED WELL. PARTIAL LINEN CHANGE WELL. REPOSITIONED FOR COMFORT AND PROVIDED ORAL CARE. VSS. WILL CONITNUE TO JESS[facility]
--- NOTE | 2019-07-03 06:40 | NUR ---
PT IS RESTING IN BED INTUBATED. VSS. BED IS LOW,SIDE RAISLX2,CALL LIGHT WITHIN REACH. WILL CONTINUE TO MONITOR
[2019-07-03 08:53] LABS: ALBUMIN 1.8 g/dL (3.4-5.0); BILIRUBIN - TOTAL 2.14 mg/dL (0.2-1.3); CARBON DIOXIDE 21.6 mmol/L (21.0-32.0); PROTEIN - SERUM 3.9 g/dL (6.4-8.2)
[2019-07-03 08:54] LABS: ANION GAP 22.4 mmol/L (8-16); CREATININE - SERUM 4.8 mg/dL (0.6-1.3)
[2019-07-03 09:11] LABS: CALCIUM 5.1 mg/dL (8.5-10.1)
--- NOTE | 2019-07-03 13:58 | NUR ---
0700 REPORT RECEIEVED AND CARE ASSUMED OF PATIENT.. SEE FLOW SHEET FOR SHIFT ASSEMENT FINDINGS.. PT IS ORALLY INTUIBATED AND NOT SEDATED WIHTOUT RESPONSE TO TACTILE OR PHYSICAL STIMULATION.. 0800 ANDRIA AREA FIELD MANAGER RENAL IN TO SEE PT UPDATE GIEN. 0900 DAUGHTERS AT BEDSIDE.. UPDATE GIVEN// 999 ANDRIA IN TO TALK WITH FAMILY AT THE BEDSIDE.. DAUGHTER STATES SHE WANTS TO SPEAK WITH A DR BEFORE MAKING ANY JUDGEMENTS OR PLANS RE PATIEBNT 1100 DR BO CONSULTED PER DR DE LA GARZA.. UPDATE GIVEN AND DR BO REVIEWED CHART.. SPOKE WITH FAMILY AT THE BEDSIDE.. 1130 DR DE LA GARZA IN TO SEE PT UPDATE GIVEN .. DR AT BEDSIDE SPEAKING FRANKLY WITH DAUGHTERS .. 1145 DAUGHTERS DECIDE THAT TERMINAL EXTUBATION IS THE COURSE OF CARE FOR PATIENT... 1210 MORPHINE 10 MG IVP GIVEN PER ORDER.. 1230 FAMILY TO WAITING ROOM PRESSORS DCd PER ORDER AND PT EXTUBATED AT 1235... FAMILY BACK TO BEDSIDE 1238 HEART RATE DROPPED RAPIDLY AND BECAME ASYSTOLE AT 1238. SEE MONITOR STRIP.. WITHOUT ANY RESPIRATORY EFFORT AFTER EXTUBATION..FAMILY AT BEDSIDE 1300 DR DE LA GARZA IN TO PRONOUNCE 1320 INFORMATION FROM FAMILY RE HOME AND BELONGINGS GIVEN TO THEM PANTS SHIRT SOCKS AND BLACK FLIP CELL PHONE.. 1330ARORA CALLED.. PT DENIED
--- NOTE | 2019-07-03 14:16 | NUR ---
0274 [facility] IN [facility] CALLED AND INFORMED OF FAMILY WISH FOR THEIR SERVICES..
--- NOTE | 2019-07-03 14:20 | NUR ---
1400 [facility] CALLED BACK THEY ARE ATTEMPTING TO REACH FAMILY RE WISHES FOR PT.. THEY WILL CALL BACK WITH DIRECTIVES RE BODY PICKUP AFTER TALKING WITH FAMILY
--- NOTE | 2019-07-03 15:08 | NUR ---
1500 POST MORTUM CARE DONE
--- NOTE | 2019-07-03 15:25 | NUR ---
1525 PT PICKED UP BY HOME RECORD OF PAPERWORK GIVEN TO HOUSE SUP
--- NOTE | 2019-07-05 09:11 | MORECARE ---
CASE MANAGEMENT DISCHARGE SUMMARY PATIENT: BAILEY JEAN BAPTISTE UNIT: [id number] ADM DATE: 06/23/19 AGE: 74 : 43 SEX: F ROOM/BED: D.2304 AUTHOR: RACHID MCCALL PHYSICIAN: REFERRING PHYSICIAN: LUCILA JACKMAN DO DATE OF SERVICE: 07/05/19 Discharge Plan Patient Name: BAILEY JEAN BAPTISTE Facility: [facility]:[place] : 1945 Planned Disposition: Home Anticipated Discharge Date: Discharge Date: 07/03/2019 Expected LOS: Initial Reviewer: [email or web address] Initial Review Date: 06/23/2019 Generated: 07/05/19 10:11 am DCP- Discharge Planning Updated by [email or web address]: Sheryl Sandra on 06/29/19 5:[address] Patient Name: BAILEY JEAN BAPTISTE Admission Status: ER Accout number: [id number] Admission Date: 06-23-2019 : 1945 Admission Diagnosis:DIARRHEA, UNSPECIFIED Attending: LUCILA JACKMAN Current LOS: 6 Anticipated DC Date: Planned Disposition: Home Primary Insurance: MEDICARE A & B Discharge Planning Comments: CM called and spoke with patient's daughter to complete initial dc planning assessment. CM educated patient's daughter on the CM role and verbal consent given by patient to complete assessment. Patient lives at home alone where she is independent with her care. At discharge patient's daughter plans on her discharging home. CM discussed availability of home health, rehab services, and medical equipment. She has a shower chair. Patient's daughter denied any known discharge needs at this time. CM will continue to follow and will assist as needed with dc plans/needs. Car Hiker: Sheryl Sandra DCPIA - Discharge Planning Initial Assessment Updated by [email or web address]: Sheryl Sandra on 06/29/19 6:06 pm * Is the patient Alert and Oriented? No * How many steps to enter\exit or inside your home? * PCP NO PCP * Pharmacy [facility] * Preadmission Environment Home Alone * ADLs Independent * Equipment Shower Chair * List name and contact numbers for known caregivers / representatives who currently or will assist patient after discharge: AYANNA ENRIQUEZ - DAUGHTER- [phone] * Verbal permission to speak to the caregivers and representatives has been obtained from the patient. N/A * Community resources currently utilized None * Additional services required to return to the preadmission environment? No * Can the patient safely return to the preadmission environment? Yes * Has this patient been hospitalized within the prior 30 days at any hospital? No Last DP export: 06/29/19 5:12 p Patient Name: BAILEY JEAN BAPTISTE Page [id number] at 0911 All edits/amendments must be made on the electronic document DICTATION DATE: 07/05/19910 AUTOMOTIVE ALIGNMENT SPECIALIST: [email or web address] 07/05/19910 RPT#: [id number] DC DATE:07/03/19 STATUS: DIS IN [facility] [address] [place] [address] END OF REPORT
[2019-07-05 13:09] LABS: F. TULARENSIS - IGG Negative (Negative); F. TULARENSIS - IGM Negative (Negative)
[2019-07-05 14:08] LABS: EHRLICHIA CHAFF IGG Negative (Neg:<1:64); EHRLICHIA CHAFF IGM Negative (Neg:<1:20); HGE IGG TITER Negative (Neg:<1:64); HGE IGM TITER Negative (Neg:<1:20)
[2019-07-06 03:06] LABS: RMSF IGM 0.44 index (0.00-0.89)
[2019-07-08 07:11] LABS: EBV PCR CSF Negative (Negative)
== END 2019-07-03 15:41 | DRG 391 ==
LOC: D.ER 00:01 → D.ICU 03:55 → D.MS 03:55 → D.ICU 06-24 21:50
PROVIDERS: Family Medicine; Internal Medicine Nephrology; Internal Medicine Pulmonary Disease; ADMIT Family Medicine; ATTEND Family Medicine
PROC: 5A09457 Assistance with Respiratory Ventilation, 24-96 Consecutive Hours, Continuous Positive Airway Pressure (ICD-10-PCS; principal; 2019-06-24)
PROC: 0BH17EZ Insertion of Endotracheal Airway into Trachea, Via Natural or Artificial Opening (ICD-10-PCS; 2019-06-25)
PROC: 5A1955Z Respiratory Ventilation, Greater than 96 Consecutive Hours (ICD-10-PCS; 2019-06-25)
PROC: 0B9F8ZX Drainage of Right Lower Lung Lobe, Via Natural or Artificial Opening Endoscopic, Diagnostic (ICD-10-PCS; 2019-07-01)
PROC: 0B9G8ZX Drainage of Left Upper Lung Lobe, Via Natural or Artificial Opening Endoscopic, Diagnostic (ICD-10-PCS; 2019-07-01)
PROC: 009U3ZZ Drainage of Spinal Canal, Percutaneous Approach (ICD-10-PCS; 2019-07-02)
DX: K52.9 Noninfective gastroenteritis and colitis, unspecified (principal); J18.9 Pneumonia, unspecified organism; J96.01 Acute respiratory failure with hypoxia; I50.33 Acute on chronic diastolic (congestive) heart failure; N17.0 Acute kidney failure with tubular necrosis; I21.A1 Myocardial infarction type 2; F17.203 Nicotine dependence unspecified, with withdrawal; E86.0 Dehydration; E87.6 Hypokalemia; M54.2 Cervicalgia; M54.5 Low back pain; W19.XXXA Unspecified fall, initial encounter